=== PATIENT | female | born 1970 | race Caucasian/White ===

== ENCOUNTER 2019-05-10 20:42 | Emergency (ER) | payer OTHER ==
[~2019-05-10] VITALS: Ht 160 cm; Wt 59.0 kg
[2019-05-10] MEDS ORDERED: BENICAR20 MG PO (20:56)
[2019-05-10] MEDS ORDERED: EVISTA PO (20:56)
[2019-05-10] MEDS ORDERED: LEXAPRO20 MG PO (20:56)
[2019-05-10] MEDS ORDERED: ZOMIG5 MG PO (21:44)
[2019-05-10 21:52] VITALS: BP 114/59
== END 2019-05-10 21:53 | disposition home or self-care (01) ==
LOC: M.ERS 20:42
DX: G43.909 Migraine, unspecified, not intractable, without status migrainosus (principal); Z90.710 Acquired absence of both cervix and uterus; Z98.890 Other specified postprocedural states